=== PATIENT | male | born 1935 | race Caucasian/White ===

== ENCOUNTER 2017-11-05 14:15 | Outpatient (CLI) | payer MEDICARE | END 2017-11-05 14:16 | disposition home or self-care (01) | LOC: BICRAD 14:15 | PROVIDERS: ATTEND Internal Medicine | DX: M25.531 Pain in right wrist (principal); M25.532 Pain in left wrist; M79.642 Pain in left hand; M79.641 Pain in right hand; M18.0 Bilateral primary osteoarthritis of first carpometacarpal joints; M19.032 Primary osteoarthritis, left wrist; M19.031 Primary osteoarthritis, right wrist; I70.90 Unspecified atherosclerosis ==

== ENCOUNTER 2018-06-04 15:26 | Outpatient (CLI) | payer MEDICARE | END 2018-06-04 15:27 | disposition home or self-care (01) | LOC: BICRAD 15:26 | PROVIDERS: ATTEND Internal Medicine | DX: M25.552 Pain in left hip (principal); M25.551 Pain in right hip; M16.12 Unilateral primary osteoarthritis, left hip; Z96.641 Presence of right artificial hip joint ==

== ENCOUNTER 2023-07-31 08:43 | Day surgery (SDC) | payer MEDICARE ==
[~2023-07-31 08:43] MED LIST: EPINEPHrine 0.3 MG in Ophthalmic Irrigation Solution 500 ML IRR SCH
[2023-07-31] MEDS ORDERED: PHENYLephrine 2.5% Ophth Soln 15 ml Bottle ONE (09:01)
[2023-07-31] MEDS ORDERED: Cyclopentolate 1% Opth Drop 2 ML BOT ONE (09:02)
[2023-07-31] MEDS ORDERED: PROPOFOL 20 ML ONE (10:14)
[2023-07-31] MEDS ORDERED: Lidocaine 1% PF 5 ML VIAL ONE ×2 (10:18→10:37)
[2023-07-31] MEDS ORDERED: Bupivacaine 0.75% 10 ML VIAL ONE (10:37)
[2023-07-31] MEDS ORDERED: CEFAZOLIN 1 GM VIAL ONE (10:37)
[2023-07-31] MEDS ORDERED: Maxitrol 0.1% Opth Oint 3.5 GM TUBE ONE (10:37)
[2023-07-31] MEDS ORDERED: Lidocaine 4% PF 5 ML AMP ONE (10:37)
[2023-07-31] MEDS ORDERED: Lidocaine 2% PF 5 ML VIAL ONE (11:11)
== END 2023-07-31 11:42 | disposition home or self-care (01) ==
LOC: SDC 08:43
PROVIDERS: ATTEND Ophthalmology Retina Specialist
PROC: 089 Eye, Drainage (ICD-10-PCS; principal; 2023-07-31)
DX: H31.40 Unspecified choroidal detachment (principal)
CPT/HCPCS: J0171; J0690; J2001; J2704; J3490

== ENCOUNTER 2025-03-15 09:36 | Day surgery (SDC) | payer MEDICARE ==
[2025-03-11 14:59] VITALS: BMI 28.6
[2025-03-15] MEDS ORDERED: cefTRIAXone (ROCEPHIN) 2 GM VIAL ONE (11:37)
[2025-03-15] MEDS ORDERED: fentaNYL PF 100 MCG/2 ML SYRINGE ONE (11:41)
[2025-03-15] MEDS ORDERED: PROPOFOL 20 ML ONE (11:42)
[2025-03-15] MEDS ORDERED: Rocuronium Bromide 10 MG/ML (10ML VIAL) ONE (11:42)
[2025-03-15] MEDS ORDERED: PHENYLEPHRINE-NS 100 MCG/ML 10 ML SYRINGE ONE (12:14)
[2025-03-15] MEDS ORDERED: Ondansetron PF 4 MG/2 ML Vial ONE (12:14)
[2025-03-15] MEDS ORDERED: SUGAMMADEX SODIUM 200 MG/2 ML VIAL ONE (12:15)
[2025-03-15] MEDS ORDERED: Glycopyrrolate 0.2 MG/ML 5 ML SYRINGE ONE (12:46)
== END 2025-03-15 15:47 | disposition home or self-care (01) ==
LOC: SDC 09:36
PROVIDERS: ATTEND Urology
PROC: 0TC08ZZ Extirpation of Matter from Right Kidney, Via Natural or Artificial Opening Endoscopic (ICD-10-PCS; principal; 2025-03-15)
DX: N20.0 Calculus of kidney (principal)
CPT/HCPCS: 52356; 74420; 82365; C1713; C1758; C1769 ×2; C2617; J0696; J1100; J2405; J2704; Q9967; 88300

== ENCOUNTER 2025-04-06 14:32 | Outpatient (CLI) | payer MEDICARE ==
[2025-04-06 16:11] LABS: Hematocrit 38.7 % (42.0-52.0); Hemoglobin 12.6 g/dL (14.0-18.0); Mean Corpuscular Hemoglobin 31.7 pg (27.0-31.0); Mean Corpuscular Volume 97.2 fL (78.0-98.0); Platelet Count 218 10x3/uL (130-400); Red Blood Cell (RBC) Count 3.98 mill/uL (4.70-6.10); White Blood Cell (WBC) Count 9.26 10x3/uL (4.8-10.8)
[2025-04-06 16:19] LABS: Anion Gap 15 mmol/L (10-20); BUN (Urea Nitrogen) 9 mg/dL (8.4-25.7); Calc. Creatinine Clearance 0 mL/min (70-130); Calcium 8.8 mg/dL (7.8-10.44); Carbon Dioxide 23 mmol/L (23-31); Chloride 105 mmol/L (98-107); Glucose 93 mg/dL (83-110); Potassium 3.6 mmol/L (3.5-5.1); Sodium 139 mmol/L (136-145)
[2025-04-06 16:23] LABS: INR-International Normal Ratio 1.0; Prothrombin Time 13.7 sec (12.0-14.7)
[2025-04-06 16:24] LABS: PTT 26.6 sec (22.9-36.1)
== END 2025-04-06 14:33 | disposition home or self-care (01) ==
LOC: LABBT 14:32
PROVIDERS: ATTEND Urology
DX: Z01.818 Encounter for other preprocedural examination (principal); N20.1 Calculus of ureter
CPT/HCPCS: 80048; 85027; 85610; 85730; 87086; 93005; 93010

== ENCOUNTER 2025-04-25 05:50 | Day surgery (SDC) | payer MEDICARE ==
[2025-04-18 13:58] VITALS: BMI 26.6
[2025-04-25] MEDS ORDERED: Famotidine/PF 20 mg/2ml Vial ONE (06:56)
[2025-04-25] MEDS ORDERED: Cefepime 2 GM VIAL ONE (07:03)
[2025-04-25] MEDS ORDERED: PROPOFOL 20 ML ONE (07:04)
[2025-04-25] MEDS ORDERED: Ondansetron PF 4 MG/2 ML Vial ONE (08:16)
[2025-04-25] MEDS ORDERED: PHENYLEPHRINE-NS 100 MCG/ML 10 ML SYRINGE ONE (08:49)
== END 2025-04-25 12:38 | disposition home or self-care (01) ==
LOC: SDC 05:50
PROVIDERS: ATTEND Urology
PROC: 0TC48ZZ Extirpation of Matter from Left Kidney Pelvis, Via Natural or Artificial Opening Endoscopic (ICD-10-PCS; principal; 2025-04-25)
PROC: 0T778DZ Dilation of Left Ureter with Intraluminal Device, Via Natural or Artificial Opening Endoscopic (ICD-10-PCS; 2025-04-25)
DX: N20.2 Calculus of kidney with calculus of ureter (principal); I10 Essential (primary) hypertension; K21.9 Gastro-esophageal reflux disease without esophagitis; E78.5 Hyperlipidemia, unspecified
CPT/HCPCS: 52356; 74420; 82365; C1758; C1769 ×2; C2617; J0692; J1308; J2405; J2704; J3010; Q9967; 88300